=== PATIENT | male | born 2000 | race Caucasian/White ===

== ENCOUNTER 2022-12-03 14:35 | Emergency (ER) | payer BC, SELFPAY ==
[2022-12-03 14:36] VITALS: BP 130/90; PULSE 87; RESP 16; TEMP 36.4; O2SAT 98; BMI 19.4
--- NOTE | 2022-12-03 16:32 | EDS_ITS ---
HPI History of Present Illness Chief Complaint: Abn Labs Narrative Narrative: ReturnPatient has no complaints. He feels well. 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 He has no nausea or vomiting he is denying diarrhea. No fevers or chills. His work-up and prior surgeries are at [facility] in [place]. [facility] Home Medications potassium chloride 20 mEq tablet,extended release 20 meq PO DAILY #14 tabs 12/03/22 [Rx Last Taken Unknown] Allergy/AdvReac Type Severity Reaction Status Date / Time No Known Allergies Allergy Verified 12/03/22 14:39 ROS ROS ED ROS Narrative Past medical history: Reviewed, as in HPI Medications: Reviewed Social history: Noncontributory Review of systems: All systems negative except as indicated General: No fever Eyes: No visual changes ENT: No upper airway congestion, normal voice Neck: No neck pain Cardiovascular: No chest pain Respiratory: No shortness of breath or cough Gastrointestinal: No abdominal pain, nausea vomiting or diarrhea Genitourinary: No dysuria Musculoskeletal: Denies myalgias no difficulty with ambulation Skin: No rash Neurological: No memory loss, confusion or any focal weakness Psych: No recent behavioral changes Hematologic: No easy bleeding or easy bruising EXAM Physical Exam Narrative Exam Narrative: Physical exam General: Well nourished, Well developed, No Acute Distress Head: Normocephalic, Atraumatic Eyes: Conjunctiva not pale ENT: Moist mucous membranes Neck: Supple, Nontender, No lymphadenopathy Cardiovascular: Regular rate, Regular rhythm Respiratory: No distress, CTA bilaterally Abdomen: Soft, Nontender, Nondistended. Well-healed old scars. Back: Nontender, Normal Inspection. Negative for: CVA tenderness Extremities: Nontender, No edema Skin: Normal color, No rash Neurological: Alert, Normal Strength, Normal Sensation Psychological: Normal affect Const Vital Signs: 12/03/22 14:36 Temperature 97.6 F L Temperature Source Temporal Pulse Rate 87 Respiratory Rate 16 Blood Pressure 130/90 H Blood Pressure Mean 103 Pulse Ox 98 Oxygen Delivery Method Room Air [facility] Lab Data Labs: Laboratory Results - last 24 hr 12/03/22 12/03/22 16:38 16:38 WBC 5.0 RBC 6.31 H Hgb 19.1 H* Hct 57.8 H MCV 91.6 MCH 30.3 MCHC 33.0 RDW Std Deviation 45.9 H RDW Coeff of Magdy 13.9 Plt Count 187 MPV 9.1 Immature Gran % (Auto) 0.400 Neut % (Auto) 56.0 Lymph % (Auto) 35.8 [place] % (Auto) 6.4 Eos % (Auto) 1.0 Baso % (Auto) 0.4 Absolute Neuts (auto) 2.8 Absolute Lymphs (auto) 1.80 Nucleated RBC % 0 Sodium 140 Potassium 3.3 L Chloride 115 H Carbon Dioxide 21.0 Anion Gap 4 L BUN 20 H Creatinine 1.97 H Estim Creat Clear Calc 51.11 Est GFR (MDRD) Af Amer 55 L Est GFR (MDRD) Non-Af 45 L BUN/Creatinine Ratio 10.2 Glucose 93 Calcium 8.2 L Phosphorus 1.8 L Magnesium 2.2 Total Bilirubin 0.50 AST 17 ALT 31 Alkaline Phosphatase 380 H Total Protein 7.5 Albumin 3.9 Globulin 3.6 Albumin/Globulin Ratio 1.1 Treatment and Re-Evaluation Narrative: A. Problems addressed Patient is found to be hypokalemic, phosphate is also slightly low. He is on phosphate replacement, I told him to double that up over the next 5 days, I told him about foods rich in phosphate. Otherwise magnesium is normal and rest of the blood work is normal. He is asymptomatic. He looks like he could be somewhat hemoconcentrated and dehydrated and he was given IV fluids in the emergency department. He is told to follow-up with his transplant team otherwise he appears well and he will be discharged in stable condition. 1. CMP, CBC, phosphate, magnesium ordered and interpreted by me. Discharge Plan Triage Chief Complaint: Abn Labs ED Provider: Sharath Rodriguez Dx/Rx/DC Orders Clinical Impression: Acute hypokalemia, Hypophosphatemia, Dehydration Instructions: Dehydration Prescriptions: New potassium chloride 20 mEq tablet extended release 20 meq PO DAILY Qty: 14 0RF Primary Care Provider: Care Physician,No Primary Referrals: [facility] Doctor,Out of [Non-Staff] - 3-5 Days Disposition Disposition: Home, Self Care
[2022-12-03 16:45] LABS: Absolute Neutrophil Count 2.8 X10^3/uL (2.0-7.7); Basophil# 0.02 X10^3/uL; Basophil% 0.4 % (0-1); Eosinophil# 0.05 X10^3/uL; Lymphocyte % 35.8 % (19-41); Mean Corpuscular Hgb 30.3 pg (27.0-32.0); Mean Corpuscular Volume 91.6 fL (80-94); Mean Platelet Vol. 9.1 fl (6.2-12.0); Monocyte# 0.32 X10^3/uL; Monocyte% 6.4 % (0-10); NRBC Flagged by Analyzer 0 % (0-5); Neutrophil # 2.82 X10^3/uL (2.7-7.7); Platelet Count 187 K/mm3 (150-450); RBC Distribution Width CV 13.9 % (11.6-14.6); RBC Distribution Width SD 45.9 fl (35.1-43.9); Red Blood Count 6.31 M/mm3 (4.6-6.2)
[2022-12-03 16:47] LABS: Hematocrit 57.8 % (40-54)
[2022-12-03 16:48] LABS: Hemoglobin 19.1 g/dL (13.0-16.5)
[2022-12-03 16:59] LABS: ALB/GLOB Ratio 1.1 RATIO (0.9-2.4); AST(SGOT) 17 U/L (15-37); Alanine Aminotransfer ALT/SGPT 31 U/L (16-61); Albumin, Serum 3.9 g/dL (3.2-5.0); Alkaline Phosphatase 380 U/L (45-117); Anion Gap 4 (5-15); BUN 20 mg/dL (7-18); BUN/Creat Ratio 10.2 RATIO (10-20); Calcium,Total 8.2 mg/dL (8.5-10.1); Chloride 115 mmol/L (98-107); Creatinine, Serum 1.97 mg/dL (0.70-1.30); EST Glomerular Filtration Rate 45 mL/min (>60); Est Glom Filt Rate - Afr Amer 55 mL/min (>60); Estimated Creatinine Clearance 51.11 ml/min; Globulin 3.6 g/dL (2.2-4.2); Glucose 93 mg/dL (74-106); Magnesium 2.2 mg/dL (1.6-2.6); Phosphorus 1.8 mg/dL (2.5-4.9); Potassium 3.3 mmol/L (3.5-5.1); Protein, Total 7.5 g/dL (6.4-8.2); Sodium Level 140 mmol/L (136-145)
[2022-12-03] MEDS: 0.9% Normal Saline 1,000 ML 999 ML IV (17:17)
[2022-12-03] MEDS: Potassium Chloride Oral Tablet 20 MEQ 40 MEQ PO (18:28)
--- NOTE | 2022-12-04 08:02 | ED.RN ---
transplant doctor called to check test results. and check on patient
== END 2022-12-03 18:30 | disposition home or self-care (01) ==
PROVIDERS: Emergency Provider Emergency Medicine; Visit Provider Emergency Medicine
DX: E87.6 Hypokalemia (principal); Z94.4 Liver transplant status; E83.39 Other disorders of phosphorus metabolism; E86.0 Dehydration; K76.9 Liver disease, unspecified
CPT/HCPCS: 80053; 83735; 84100; 85025; 96360; 99283; J7030; A4216

== ENCOUNTER 2023-03-25 17:42 | Emergency (ER) | payer BC, SELFPAY ==
[2023-03-25 17:43] VITALS: BP 99/70; PULSE 85; RESP 18; TEMP 36.7; O2SAT 100; BMI 19.4
[2023-03-25 18:00] VITALS: BMI 19.4
--- NOTE | 2023-03-25 18:25 | EX.ED.DYSGE1 ---
HPI <NESS Sahu - Last Filed: 03/25/23 20:28> History of Present Illness Chief Complaint: Neuro S/Sx Narrative Narrative: Patient is a 22-year-old male with history of genetic disorder who had a liver transplant. He does take rejection medications, he presents to the emergency department with 1 day of full facial numbness, a feeling of tingling. Patient denies any weakness, patient is able to speak, able to eat and drink and manage his secretions. This started roughly around 3 PM yesterday, he took a nap for 45 minutes it kind of went away and what came back last evening. He does have history of hypokalemia, he is not sure if his electrolytes are off. He denies any difficulty walking or doing daily activities. Denies any recent injury, fever chills nausea vomiting PFSH <NESS Sahu - Last Filed: 03/25/23 20:28> PFSH Home Medications potassium chloride 20 mEq tablet,extended release 20 meq PO DAILY #14 tabs 12/03/22 [Rx Last Taken Unknown] calcium carbonate 600 mg-vitamin D3 10 mcg (400 unit) tablet (Calcium 600 + D(3)) 2 tab PO DAILY 30 days #60 tabs 03/25/23 [Rx Last Taken Unknown] Allergy/AdvReac Type Severity Reaction Status Date / Time No Known Allergies Allergy Verified 12/03/22 14:39 Surgical History (Updated 03/25/23 @ 22:[address] Issac Moncada MD) Liver transplant recipient Social History Smoking Status: Never smoker ROS <NESS Sahu - Last Filed: 03/25/23 20:28> ROS ED ROS Narrative Constitutional: Negative for fever, chills, weight loss, weakness Eyes: Negative for vision loss, vision change, double vision ENT: Negative for any sore throat, ear pain, congestion Cardiovascular: Negative for any chest pain, tightness, palpitations Respiratory: Negative for any cough, sputum production, hemoptysis, dyspnea, dyspnea on exertion, orthopnea Gastrointestinal: Negative for any abdominal pain, nausea, vomiting, diarrhea, constipation, blood in stool, blood in vomit : Negative for any urinary frequency, dysuria, retention, blood in urine Muscle skeletal: Negative for any muscle joint pain, stiffness, myalgias, arthralgias, neck pain, back pain Neurological: Negative for any headache, syncope, dizziness. Positive for numbness and tingling to the face. Skin: Negative for any rashes, lumps, itching, abrasions, lacerations Psychiatric: Negative for any depression, anxiety, stress, suicidal ideation, homicidal ideation Hematologic: Negative for any easy bruising, excessive bruising, easy bleeding Allergies: Negative for any eczema, hives, rash EXAM <NESS Sahu - Last Filed: 03/25/23 20:28> Physical Exam Narrative Exam Narrative: Vital signs reviewed. HEET: Head normocephalic atraumatic, TMs clear bilaterally. Posterior pharynx is clear, moist mucous membranes. Nares clear bilaterally. Neck: Supple with no lymphadenopathy or tenderness. No signs of meningismus, negative jolt sign. Cardiac: Regular rate and rhythm no murmurs gallops or rubs, equal peripheral pulses bilaterally. Respiratory: Lungs clear to auscultation bilaterally. No chest tenderness. Abdomen: Soft, nontender, nondistended. No abdominal bruit or pulsatile masses. No hepatosplenomegaly Extremities: No peripheral edema, no signs of gross trauma or deformity. Active full range of motion of all extremities. Neuro: Cranial nerves II through XII intact, no focal neurological deficits. Negative facial droop, negative ataxia, negative difficulty ambulating. NIH score 0. Sensation is similar bilaterally. Skin: Clean dry and intact with no rash, purpura, petechiae, vesicles or pustules. Backs/flank: No CVA tenderness, no midline spinal tenderness, no deformity. Psych: Normal mood and affect. No SI, HI or acute psychosis. Const Vital Signs: 03/25/23 17:43 03/25/23 19:48 Temperature 98.1 F Temperature Source Temporal Pulse Rate 85 78 Respiratory Rate 18 16 Blood Pressure 99/70 106/71 Blood Pressure Mean 79 82 Pulse Ox 100 97 Oxygen Delivery Method Room Air Room Air Positive well nourished and well developed General Appearance ED: well developed <Dr. Issac Moncada MD - Last Filed: 03/25/23 22:53> Physical Exam Const Vital Signs: 03/25/23 17:43 03/25/23 19:48 Temperature 98.1 F Temperature Source Temporal Pulse Rate 85 78 Respiratory Rate 18 16 Blood Pressure 99/70 106/71 Blood Pressure Mean 79 82 Pulse Ox 100 97 Oxygen Delivery Method Room Air Room Air [facility] <NESS Sahu - Last Filed: 03/25/23 20:28> [facility] Lab Data Labs: Laboratory Results - last 24 hr 03/25/23 03/25/23 18:25 18:25 WBC 5.4 RBC 5.17 Hgb 15.1 Hct 48.2 MCV 93.2 MCH 29.2 MCHC 31.3 L RDW Std Deviation 52.0 H RDW Coeff of Magdy 15.0 H Plt Count 226 MPV 8.9 Immature Gran % (Auto) 0.200 Neut % (Auto) 50.1 Lymph % (Auto) 41.5 H [place] % (Auto) 6.7 Eos % (Auto) 0.9 Baso % (Auto) 0.6 Absolute Neuts (auto) 2.7 Absolute Lymphs (auto) 2.22 Nucleated RBC % 0 Sodium 140 Potassium 3.1 L Chloride 115 H Carbon Dioxide 20.0 L Anion Gap 5 BUN 13 Creatinine 1.42 H Estim Creat Clear Calc 66.96 Est GFR (MDRD) Af Amer 80 Est GFR (MDRD) Non-Af 66 BUN/Creatinine Ratio 9.2 L Glucose 92 Calcium 6.4 L* Treatment and Re-Evaluation :: Patient appears generally well, patient appears nontoxic, vital signs are stable. Patient presents to the emergency department with complaints of facial numbness, tingling for 1.5 days.Patient's laboratory values showed a normal CBC, patient's chemistries did show abnormal electrolytes with a slight low potassium at 3.1 however this seems baseline. Patient's creatinine was elevated at 1.42 however again this is an improvement from November when his creatinine is 1.97. Patient's calcium was 6.4 which is critical low. This does explain the patient's numbness and tingling. He was given an amp of calcium gluconate here. He will be placed on calcium chloride tabs, he will follow-up with his PCP to have his blood work rechecked. He was given strict return precaution. He is happy with the plan of care. Is no evidence of any stroke or other neurological pathology. Patient stable for discharge. <Dr. Issac Moncada MD - Last Filed: 03/25/23 22:53> MDM MDM Narrative Medical decision making narrative: I have personally performed a face to face assessment of the patient and have reviewed the COLTON Note. I performed a substantive portion of the visit including all aspects of the following. My galloway findings include: History is 22-year-old male who had a prior liver transplant. Complaining of facial tingling bilaterally. Denies any significant headache or head trauma. No weakness of his upper or lower extremities. No prior history of this before. No trouble with his speech or vision. Exam is [well-appearing 22-year-old male. Vital signs stable afebrile. Does not look septic or toxic. HEENT exam pupils round reactive light. Extra motions are intact. No facial droop. Normal speech. No muscle spasms in the face. Neck nontender. Lungs are clear. Heart regular rhythm. Abdomen soft nontender. Moving all 4 extremities. Normal horticultural specialty grower strength. Normal dorsi plantarflexion. Neurologic exam unremarkable. No focal motor deficits.] Medical Decision Making [22-year-old male with facial tingling. History of prior hypokalemia. Screening labs were obtained. CBC was unremarkable. His electrolytes showed a low potassium of 3.1. Also a low calcium of 6.4. We believe this may be the cause of his facial tingling. He was given calcium gluconate here IV. Placed on calcium replacement at home and will have outpatient follow-up.] Other additions or changes: [None] Lab Data Labs: Laboratory Results - last 24 hr 03/25/23 03/25/23 18:25 18:25 WBC 5.4 RBC 5.17 Hgb 15.1 Hct 48.2 MCV 93.2 MCH 29.2 MCHC 31.3 L RDW Std Deviation 52.0 H RDW Coeff of Magdy 15.0 H Plt Count 226 MPV 8.9 Immature Gran % (Auto) 0.200 Neut % (Auto) 50.1 Lymph % (Auto) 41.5 H [place] % (Auto) 6.7 Eos % (Auto) 0.9 Baso % (Auto) 0.6 Absolute Neuts (auto) 2.7 Absolute Lymphs (auto) 2.22 Nucleated RBC % 0 Sodium 140 Potassium 3.1 L Chloride 115 H Carbon Dioxide 20.0 L Anion Gap 5 BUN 13 Creatinine 1.42 H Estim Creat Clear Calc 66.96 Est GFR (MDRD) Af Amer 80 Est GFR (MDRD) Non-Af 66 BUN/Creatinine Ratio 9.2 L Glucose 92 Calcium 6.4 L* Discharge Plan Triage Chief Complaint: Neuro S/Sx ED Midlevel Provider: Sharath Boyle ED Provider: Issac Moncada Dx/Rx/DC Orders Clinical Impression: Paresthesia, Hypocalcemia, History of liver transplant Instructions: Hypocalcemia Dc, ED Paraesthesias, ED Hypocalcemia (Adult) Prescriptions: New calcium carbonate-vitamin D3 [Calcium 600 + D(3)] 600 mg-10 mcg (400 unit) tablet 2 tab PO DAILY 30 Days Qty: 60 0RF No Action potassium chloride 20 mEq tablet extended release 20 meq PO DAILY Qty: 14 0RF Primary Care Provider: Care Physician,No Primary Referrals: Care Physician,No Primary [Primary Care Provider] - Activity Restrictions/Additional Instructions: You need to take the calcium supplements and you need to have your blood checked again within the next 2 weeks. Disposition Disposition: Home, Self Care Discharge Date/Time: 03/25/23 20:40
[2023-03-25 18:49] LABS: Absolute Lymphocyte Count 2.22 X10^3/uL (0.83-4.51); Absolute Neutrophil Count 2.7 X10^3/uL (2.0-7.7); Basophil# 0.03 X10^3/uL; Basophil% 0.6 % (0-1); Eosinophil# 0.05 X10^3/uL; Eosinophils% 0.9 % (0-5); Hematocrit 48.2 % (40-54); Hemoglobin 15.1 g/dL (13.0-16.5); Lymphocyte # 2.22 X10^3/ul (0.83-4.51); Lymphocyte % 41.5 % (19-41); Mean Corp Hgb Conc 31.3 g/dL (32-36); Mean Corpuscular Hgb 29.2 pg (27.0-32.0); Mean Corpuscular Volume 93.2 fL (80-94); Mean Platelet Vol. 8.9 fl (6.2-12.0); Monocyte# 0.36 X10^3/uL; Monocyte% 6.7 % (0-10); NRBC Flagged by Analyzer 0 % (0-5); Neutrophil # 2.68 X10^3/uL (2.7-7.7); Neutrophil % 50.1 % (47-70); Platelet Count 226 K/mm3 (150-450); Red Blood Count 5.17 M/mm3 (4.6-6.2); White Blood Count 5.4 K/mm3 (4.4-11.0)
[2023-03-25 19:04] LABS: Anion Gap 5 (5-15); BUN 13 mg/dL (7-18); BUN/Creat Ratio 9.2 RATIO (10-20); Calcium,Total 6.4 mg/dL (8.5-10.1); Chloride 115 mmol/L (98-107); Creatinine, Serum 1.42 mg/dL (0.70-1.30); EST Glomerular Filtration Rate 66 mL/min (>60); Est Glom Filt Rate - Afr Amer 80 mL/min (>60); Estimated Creatinine Clearance 66.96 ml/min; Glucose 92 mg/dL (74-106); Potassium 3.1 mmol/L (3.5-5.1); Sodium Level 140 mmol/L (136-145)
[2023-03-25 19:48] VITALS: BP 106/71; PULSE 78; RESP 16; O2SAT 97
== END 2023-03-25 20:40 | disposition home or self-care (01) ==
PROVIDERS: Nurse Practitioner; Emergency Provider Emergency Medicine; Visit Provider Emergency Medicine
DX: R20.2 Paresthesia of skin (principal); Z94.4 Liver transplant status; E83.51 Hypocalcemia
CPT/HCPCS: 80048; 85025; 99283; J7050; A4216; J0612